=== PATIENT | female | born 1955 | race Caucasian/White ===

== ENCOUNTER 2017-08-13 20:44 | Emergency (ER) | payer SELFPAY ==
[2017-08-13 21:28] VITALS: TEMP 98.3
--- NOTE | 2017-08-13 22:11 | RAD ---
EXAM DESCRIPTION: Humerus,Right CLINICAL HISTORY: pain prox humerus shoulder 2 months. COMPARISON: None. FINDINGS: 2 views of the right humerus. No acute fracture or dislocation. Osteopenia. Mild osteoarthritic change of the acromioclavicular and glenohumeral joints. No acute abnormalities of visualized right hemithorax. IMPRESSION: No acute fracture or dislocation. Electronically signed by: Mikhail Garnett 08/13/2017 10:09 PM CDT
--- NOTE | 2017-08-13 22:11 | RAD ---
EXAM DESCRIPTION: Shoulder,Right 2 or More Views CLINICAL HISTORY: pain prox humerus shoulder 2 months. COMPARISON: None. FINDINGS: 2 views of the right shoulder. No acute fracture or dislocation. Osteophytic change of the acromioclavicular and glenohumeral joints. No acute abnormality of the visualized right hemithorax. IMPRESSION: No acute fracture or dislocation. Electronically signed by: Mikhail Garnett 08/13/2017 10:10 PM CDT
--- NOTE | 2017-08-13 22:47 | ED.PDOC ---
History of Present Illness - General Chief Complaint: Upper Extremity Injury Stated Complaint: Rt Shoulder Pain Time Seen by Provider: 08/13/17 21:29 Source: patient Exam Limitations: no limitations - History of Present Illness Initial Comments: The patient is a 62-year-old female presenting to the emergency room after 3 months of right upper arm and shoulder pain. She reports that he got bad enough not that should do something about it. It hurts when she pushes things away. She has a hard time with extension at the shoulder. She has a hard time with abduction at the shoulder. She has significant tenderness to palpation over theinsertion of the pectoralis muscles on the humerus. Passive range of motion is preserved. Active range of motion when forced is preserved. She does appear to be neurovascularly intact. She does not remember any trauma. There is no deformity. Timing/Duration: unsure Severity: moderate Improving Factors: nothing Worsening Factors: movement Associated Symptoms: denies symptoms Allergies/Adverse Reactions: Allergies NO KNOWN ALLERGY Allergy (Verified 08/13/17 21:28) Review of Systems - Review of Systems EENTM: States: no symptoms reported Respiratory: States: no symptoms reported Cardiology: States: no symptoms reported Gastrointestinal/Abdominal: States: no symptoms reported Genitourinary: States: no symptoms reported Musculoskeletal: States: see HPI Skin: States: no symptoms reported Neurological: States: no symptoms reported Endocrine: States: no symptoms reported All other Systems: No Change from Baseline Past Medical History (General) - Patient Medical History Hx Seizures: No Hx Stroke: No Hx Dementia: No Hx Asthma: No Hx of COPD: No Hx Cardiac Disorders: No Hx Congestive Heart Failure: No Hx Pacemaker: No Hx Hypertension: No Hx Thyroid Disease: No Hx Diabetes: No Hx Gastroesophageal Reflux: No Hx Renal Disease: No Hx Cancer: No Hx of HIV: No Hx Hepatitis C: No Hx MRSA: No Surgical History: Hysterectomy, other - Vaccination History Hx Tetanus, Diphtheria Vaccination: No Hx Influenza Vaccination: No Hx Pneumococcal Vaccination: No Immunizations Up to Date: No - Social History Hx Tobacco Use: No Hx Alcohol Use: Yes - Occasional Hx Substance Use: No Hx Substance Use Treatment: No Hx Depression: No Feels Threatened In Home Enviroment: No Feels Threatened In a Relationship: No Hx Physical Abuse: No Hx Emotional Abuse: No Hx Suspected Abuse: No - Activities of Daily Living Hospice Agency (if applicable):: None - Female History Patient is a Female of Child Bearing Age (10 -59 yrs old): No - Triage Comment ED Triage Comment: Pt states she has right shoulder pain that has been ongoing for 3 months and has gradually gotten worse. Pt has limited ROM of right arm. Family Medical History - Family History Mother Living Status: Unknown Hx Family Hypertension: Yes Hx Family Diabetes: Yes Physical Exam - Physical Exam General Appearance: Alert, Comfortable, No apparent distress Eye Exam: bilateral normal Ears, Nose, Throat: normal ENT inspection, normal pharynx Neck: full range of motion Respiratory: no respiratory distress, no accessory muscle use Cardiovascular/Chest: normal peripheral pulses, no edema Peripheral Pulses: radial,right: 2+, radial,left: 2+ Rectal Exam: deferred Extremity: no pedal edema, no calf tenderness, normal capillary refill, other - see history of present illness 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 She does need to do stretching exercises primarily. Topical heat in the form of a heat pad or icy hot may help as well. She can continue Aleve 2 tablets 3 times a day as needed with food. She is going to receive 1 dose of oral prednisone here tonight. She needs to set up care with a primary care doctor in the next couple weeks for general medical problems. ER warnings were given for any significant worsening. - EKG/XRAY/CT CT Ordered: No CT Interpretation Call Back: No Departure - Departure Clinical Impression: Pectoralis major tendonitis Qualifiers: Laterality: right Qualified Code(s): M75.81 - Other shoulder lesions, right shoulder Disposition: Discharge to Home or Self Care Condition: Fair Departure Forms: ED Discharge - Pt. Copy, Patient Portal Self Enrollment Diet: regular diet Activity: increase activity as tolerated Additional Instructions: the patient is a 62-year-old female presenting to the emergency room secondary to what appears to be a right pectoralis muscle strain and tendinitis. She does need to do stretching exercises primarily. Topical heat in the form of a heat pad or icy hot may help as well. She can continue Aleve 2 tablets 3 times a day as needed with food. She is going to receive 1 dose of oral prednisone here tonight. She needs to set up care with a primary care doctor in the next couple weeks for general medical problems. ER warnings were given for any significant worsening.
[2017-08-13] MEDS ORDERED: predniSONE 20 MG TAB PO ONE (22:49)
[2017-08-13 23:13] VITALS: BP 122/69; O2SAT 100
== END 2017-08-13 23:08 | disposition home or self-care (01) ==
LOC: ER 20:44
DX: M75.81 Other shoulder lesions, right shoulder (principal)
CPT/HCPCS: 73030; 73060; J7512